=== PATIENT | male | born 1965 | race Caucasian/White ===

== ENCOUNTER → 2017-06-02 | Outpatient (CLI) | payer BC, OTHER ==
[~2017-06-02] MED LIST: IBUPROFEN 800800 M1 PO; KEFLEX500 MG PO; NORCO 5-325 TA1 EACH PO
== END ==
LOC: M.ULTRA 08:36
DX: R10.30 Lower abdominal pain, unspecified (principal); R10.2 Pelvic and perineal pain

== ENCOUNTER → 2017-06-03 | Outpatient (CLI) | payer BC, OTHER | LOC: M.CT 13:48 | DX: K31.4 Gastric diverticulum (principal); N28.1 Cyst of kidney, acquired; K76.89 Other specified diseases of liver ==

== ENCOUNTER → 2017-06-07 | Outpatient (CLI) | payer BC, OTHER | LOC: M.RAD 11:45 | DX: R07.1 Chest pain on breathing (principal); R05 Cough ==

== ENCOUNTER → 2017-06-09 | Outpatient (CLI) | payer BC, OTHER | LOC: M.ULTRA 06-08 08:00 | DX: R16.0 Hepatomegaly, not elsewhere classified (principal); K76.89 Other specified diseases of liver ==

== ENCOUNTER → 2018-06-22 | Outpatient (CLI) | payer BC, OTHER | LOC: M.NUC 06-16 13:00 | DX: R10.10 Upper abdominal pain, unspecified (principal); I10 Essential (primary) hypertension; Z79.1 Long term (current) use of non-steroidal anti-inflammatories (NSAID) ==

== ENCOUNTER → 2018-10-24 | Outpatient (CLI) | payer BC, OTHER | LOC: M.ULTRA 08:51 | DX: M79.604 Pain in right leg (principal); M79.605 Pain in left leg; R20.8 Other disturbances of skin sensation ==

== ENCOUNTER → 2018-10-25 | Outpatient (CLI) | payer BC, OTHER | LOC: M.ULTRA 12:40 | DX: M62.272 Nontraumatic ischemic infarction of muscle, left ankle and foot (principal); M62.271 Nontraumatic ischemic infarction of muscle, right ankle and foot; I70.213 Atherosclerosis of native arteries of extremities with intermittent claudication, bilateral legs ==

== ENCOUNTER → 2019-12-10 | Outpatient (CLI) | payer BC ==
--- NOTE | 2019-12-10 15:30 | 2DMMODE ---
[place] [address] 2 D/M-MODE ECHOCARDIOGRAM Name: DILCIA GONZALEZ Room: [facility]#: [id number] Admission: 12/10/19 Attend Phys: Luiza Holloway Discharge: Date of : 63 Date of Service: 12/10/19 1530 Report #: [id number] THIS REPORT FOR: cc: Luiza Holloway MD, Kandice L. MD Holkins, John M. MD [facility] ~ APPROVED REPORT Study performed: 12/10/2019 13:46:13 EXAM: Comprehensive 2D, Doppler, and color-flow Echocardiogram Patient Location: Out-Patient BSA: 2.43 HR: 74 bpm BP: 120/78 mmHg Other Information Study Quality: Good Indications Edema 2D Dimensions IVSd: 12.45 (7-11mm) LVOT Diam: 20.38 (18-24mm) LVDd: 50.50 mm PWd: 11.91 (7-11mm) Ascending Ao: 34.03 (22-36mm) LVDs: 29.86 (25-40mm) Aortic Root: 35.78 mm Volumes Left Atrial Volume (Systole) LA ESV Index: 18.00 mL/m2 Aortic Valve AoV Peak Mario.: 1.20 m/s AO Peak Gr.: 5.74 mmHg LVOT Max P.79 mmHg AO Mean Gr.: 3.59 mmHg LVOT Mean P.82 mmHg LVOT Max V: 0.97 m/s AO V2 VTI: 21.68 cm LVOT Mean V: 0.62 m/s DAVID (VTI): 2.55 cm2 LVOT V1 VTI: 16.95 cm Mitral Valve E/A Ratio: 0.83 [place] [address] 2 D/M-MODE ECHOCARDIOGRAM Name: DILCIA GONZALEZ Room: [facility]#: [id number] Admission: 12/10/19 Attend Phys: Luiza Holloway Discharge: Date of : 63 Date of Service: 12/10/19 1530 Report #: [id number] MV Decel. Time: 229.99 ms MV E Max Mario.: 0.52 m/s MV PHT: 66.70 ms MVA (PHT): 3.30 cm2 TDI E/Lateral E': 4.00 E/Medial E': 7.43 Medial E' Mario.: 0.07 m/s Lateral E' Mario.: 0.13 m/s Pulmonary Valve PV Peak Mario.: 1.10 m/s PV Peak Gr.: 4.81 mmHg Tricuspid Valve RAP Estimate: 5.00 mmHg TR Peak Gr.: 22.03 mmHg RVSP: 27.03 mmHg PA Pressure: 27.03 mmHg Left Ventricle The left ventricle is normal size. There is normal LV segmental wall motion. There is normal left ventricular wall thickness. Left ventricular systolic function is normal. The left ventricular ejection fraction is within the normal range. LVEF is 55-60%. Grade I - abnormal relaxation pattern. Right Ventricle The right ventricle is normal size. The right ventricular systolic function is normal. Atria The left atrium size is normal. The right atrium size is normal. Aortic Valve The aortic valve is normal in structure. No aortic regurgitation is present. There is no aortic valvular stenosis. Mitral Valve The mitral valve is normal in structure. There is no mitral valve regurgitation noted. No evidence of mitral valve stenosis. Tricuspid Valve The tricuspid valve is normal in structure. Mild tricuspid [place]itation[place] [address] 2 D/M-MODE ECHOCARDIOGRAM Name: DILCIA GONZALEZ Room: [facility]#: [id number] Admission: 12/10/19 Attend Phys: Luiza Holloway Discharge: Date of : 63 Date of Service: 12/10/19 1530 Report #: [id number] The pulmonary valve is normal in structure. Mild pulmonic regurgitation. Great Vessels The aortic root is normal in size. IVC is normal in size and collapses >50% with inspiration. Pericardium There is no pericardial effusion. <Conclusion> The left ventricle is normal size. There is normal left ventricular wall thickness. Left ventricular systolic function is normal. The left ventricular ejection fraction is within the normal range. LVEF is 55-60%. Grade I - abnormal relaxation pattern. The right ventricle is normal size. The left atrium size is normal. The aortic valve is normal in structure. The mitral valve is normal in structure. The tricuspid valve is normal in structure. Mild tricuspid regurgitation. IVC is normal in size and collapses >50% with inspiration. There is no pericardial effusion. There is normal LV segmental wall motion. <ELECTRONICALLY SIGNED> By: Jean Marie Brito MD, FACC 12/10/19 [id number] Jean Marie Brito MD, FACC /INF
== END ==
LOC: M.CRD 13:52
PROVIDERS: ATTEND Family Medicine
DX: I08.8 Other rheumatic multiple valve diseases (principal)